=== PATIENT | female | born 1980 | race Asian ===

== ENCOUNTER 2020-07-23 08:08 | Emergency (ER) | payer MEDICAID ==
--- NOTE | 2020-07-23 08:24 | ED Physician Documentation ---
PD HPI FEMALE - Stated complaint Stated Complaint: FEMALE - Chief complaint Chief Complaint: Abd Pain - History obtained from History obtained from: Patient - History of Present Illness Timing - onset: How many days ago (5) Timing - duration: Days (5) Timing - details: Gradual onset, Still present Associated symptoms: Hematuria Contributing factors: [employer]CH MECH[employer]IC History: G (1), P (0) Similar symptoms before: Has not had sx before Recently seen: Other - Additional information Additional information: 40 y/o female recently found out she was maybe 5wks now. She has had pink tinged urine for the past 5 days and this is worse over the past 2 days. She did have some pelvic cramping about 3 days ago. No tissue has passed. She does indicate she has had some blood on a pad as well. Review of Systems Constitutional: denies: Fever, Chills, Myalgias Eyes: denies: Decreased vision Ears: denies: Ear pain Nose: denies: Rhinorrhea / runny nose, Congestion Throat: denies: Sore throat Cardiac: denies: Chest pain / pressure, Palpitations Respiratory: denies: Dyspnea, Cough GI: denies: Abdominal Pain, Nausea, Vomiting : reports: Frequency, Hematuria. denies: Dysuria Skin: denies: Rash Musculoskeletal: denies: Neck pain, Back pain, Extremity pain PD PAST MEDICAL HISTORY - Present Medications Home Medications: Ambulatory Orders Medication Instructions Recorded Confirmed Vit,Dom 74/Iron/Folic 1 tab PO DAILY 07/23/20 07/23/20 [ Low Iron Tablet] - Allergies Allergies/Adverse Reactions: Allergies Allergy/AdvReac Type Severity Reaction Status Date / Time No Known Drug Allergies Allergy Verified 07/23/20 08:50 PD ED PE NORMAL - Vitals Vital signs reviewed: Yes (hypertensive mild ) - General General: Alert and oriented X 3, No acute distress, Well developed/nourished - HEENT HEENT: Atraumatic, PERRL, EOMI - Neck Neck: Supple, no meningeal sign, No bony TTP - Cardiac Cardiac: RRR, No murmur - Respiratory Respiratory: No respiratory distress, Clear bilaterally - Abdomen Abdomen: Normal bowel sounds, Soft, Non tender, Non distended, No organomegaly - Back Back: No CVA TTP, No spinal TTP - Derm Derm: Normal color, Warm and dry, No rash - Extremities Extremities: No deformity, No edema - Neuro Neuro: Alert and oriented X 3, furnace converter 2-12 intact, No motor deficit, No sensory deficit, Normal speech Eye Opening: Spontaneous Motor: Obeys Commands Verbal: Oriented GCS Score: 15 - Psych Psych: Normal mood, Normal affect Results - Vitals Vitals: Vital Signs - 24 hr 07/23/20 07/23/20 08:10 10:52 Temperature 36.6 C 37.1 C Heart Rate 68 84 Respiratory 16 16 Rate Blood Pressure 135/59 H 118/68 O2 Saturation 100 99 Oxygen O2 Source Room air - Labs Labs: Laboratory Tests 07/23/20 07/23/20 08:40 08:54 HCG, Quant 8.09 Urine Color RED/BLOODY Urine Clarity CLOUDY Urine pH 7.0 Ur Specific [place] 1.015 Urine Protein TRACE Urine Glucose (UA) NEGATIVE Urine Ketones NEGATIVE Urine Occult Blood LARGE H Urine Nitrite NEGATIVE Urine Bilirubin NEGATIVE Urine Urobilinogen 0.2 (NORMAL) Ur Leukocyte Esterase NEGATIVE Urine RBC TNTC H Urine WBC 0-3 Ur Squamous Epith Cells RARE Squamous Urine Bacteria Rare Ur Microscopic Review INDICATED Urine Culture Comments NOT INDICATED - Rads (name of study) pelvic ultrasound Radiology: Prelim report reviewed (Impression: 1. No visualized intra or extrauterine . No free fluid. However, recommend correlation to get to beta-hCG levels and short interval imaging follow-up as indicated. Collapsing cyst noted within the right ovary), EMP read indepedently, See rad report PD MEDICAL DECISION MAKING - ED course Complexity details: reviewed results, re-evaluated patient, considered differential, d/w patient ED course: 4-year-old female with what appears to be a completed miscarriage at early . Departure - Departure Disposition: 01 Home, Self Care Clinical Impression: Miscarriage Condition: Stable Instructions: ED Miscarriage Completed Follow-Up: [facility] [Provider Group] Discharge Date/Time: 07/23/20 10:54
[2020-07-23 09:00] LABS: BILIRUBIN,URINE NEGATIVE (NEGATIVE); GLUCOSE, URINE (UA) NEGATIVE (NEGATIVE); KETONES,URINE (UA) NEGATIVE (NEGATIVE); LEUKOCYTE ESTERASE, URINE NEGATIVE (NEGATIVE); NITRITE,URINE NEGATIVE (NEGATIVE); OCCULT BLOOD,URINE LARGE (NEGATIVE); PROTEIN,URINE TRACE mg/dL (NEGATIVE); UROBILINOGEN,URINE 0.2 (NORMAL) E.U./dL (NORMAL)
[2020-07-23 09:02] LABS: BACTERIA,URINE Rare /HPF (None Seen); CLARITY,URINE CLOUDY (CLEAR); RBC,URINE TNTC /HPF (0-5); SQUAMOUS EPITHELIAL CELL,UR RARE Squamous (<= Few)
[2020-07-23 10:54] VITALS: BP 118/68
--- NOTE | 2020-07-23 11:13 | Ultrasound Report ---
PROCEDURE: OB First Trimester INDICATIONS: early bleeding cramping OUTSIDE/PRIOR DATING DATA: Last menstrual period (LMP): 06/17/2020. LMP-based estimated date of delivery (JAUN F): 03/24/2021. First dating scan (date and location): 07/23/2020. Estimated date of delivery (JUAN F) from first dating scan: Not applicable. TECHNIQUE: Real-time scanning was performed of the fetus and maternal pelvic organs, with image documentation. COMPARISON: None FINDINGS: Embryo: There is no visualization of intrauterine . Endometrium is mildly thickened. Cervix is closed. Measurement variability in dating: +/- 4 weeks by LMP, +/- 7 days by mean sac diameter (use before 6 weeks gestation if crown-rump length not able to be measured), +/- 5 days by crown-rump length (6-12 weeks gestation). Maternal organs: Ovaries demonstrate a cystic structure within the right ovary measuring 12 mm. No f ree fluid is identified.. Uterus has a somewhat arcuate appearance. IMPRESSION: 1. No visualized intra or extrauterine . No free fluid. However, recommend correlation to be ta hCG levels and short interval imaging follow-up as indicated. 2. Collapsing cyst noted within the right ovary. Reviewed by: Ana Vasquez MD on 07/23/2020 11:12 AM PST Approved by: Ana Vasquez MD on 07/23/2020 11:12 AM PST Station ID: [id number]
--- NOTE | 2020-07-23 11:14 | Ultrasound Report ---
PROCEDURE: OB Transvaginal INDICATIONS: early bleeding cramping OUTSIDE/PRIOR DATING DATA: Last menstrual period (LMP): 06/17/2020. LMP-based estimated date of delivery (JUANF ): 03/24/2021. First dating scan (date and location): 07/23/2020. Estimated date of delivery (JUAN F) from first dating scan: Not applicable. TECHNIQUE: Real-time scanning was performed of the fetus and maternal pelvic organs, with image documentation. COMPARISON: FINDINGS: Embryo: There is no visualization of intrauterine . Endometrium is mildly thickened. Cervix is closed. Measurement variability in dating: +/- 4 weeks by LMP, +/- 7 days by mean sac diameter (use before 6 weeks gestation if crown-rump length not able to be measured), +/- 5 days by crown-rump length (6-12 weeks gestation). Maternal organs: Ovaries demonstrate a cystic structure within the right ovary measuring 12 mm. No f ree fluid is identified.. Uterus has a somewhat arcuate appearance. IMPRESSION: 1. No visualized intra or extrauterine . No free fluid. However, recommend correlation to be ta hCG levels and short interval imaging follow-up as indicated. 2. Collapsing cyst noted within the right ovary. Reviewed by: Ana Vasquez MD on 07/23/2020 11:12 AM PST Approved by: Ana Vasquez MD on 07/23/2020 11:12 AM PST Station ID: [id number]
== END 2020-07-23 10:54 | disposition home or self-care (01) ==
LOC: ED 08:08
DX: O03.9 Complete or unspecified spontaneous abortion without complication (principal)
CPT/HCPCS: 36415; 81001; 81003; 84702; 87086; 99284

== ENCOUNTER 2020-07-30 14:46 | Outpatient (CLI) | payer MEDICAID | END 2020-07-30 14:47 | disposition home or self-care (01) | LOC: LAB 14:46 | PROVIDERS: ATTEND Obstetrics & Gynecology | DX: O03.9 Complete or unspecified spontaneous abortion without complication (principal) | CPT/HCPCS: 36415; 84702 ==

== ENCOUNTER 2020-11-20 11:20 | Outpatient (CLI) | payer MEDICAID ==
[2020-11-20 21:20] LABS: BACTERIAL VAGINOSIS DNA NEGATIVE (NEGATIVE); CANDIDA GLABRATA DNA NEGATIVE (NEGATIVE); CANDIDA GROUP DNA POSITIVE (NEGATIVE); CANDIDA KRUSEI DNA NEGATIVE (NEGATIVE); TRICHOMONAS VAGINALIS DNA NEGATIVE (NEGATIVE)
[2020-11-20 22:03] LABS: CHLAMYDIA TRACHOMATIS DNA NEGATIVE (NEGATIVE); NEISSERIA GONORRHOEAE DNA NEGATIVE (NEGATIVE); TRICHOMONAS VAGINALIS DNA NEGATIVE (NEGATIVE)
== END 2020-11-20 23:59 | disposition home or self-care (01) ==
LOC: LAB.R 11:20
PROVIDERS: ATTEND Physician Assistant Medical
DX: N76.0 Acute vaginitis (principal)
CPT/HCPCS: 87491; 87591; 87661; 87801

== ENCOUNTER 2021-04-10 08:00 | Outpatient (CLI) | payer MEDICAID ==
[2021-04-10 16:04] LABS: MUDS CUTOFF CONCENTRATIONS CUTOFF CONC BELOW:
[2021-04-10 16:12] LABS: BILIRUBIN,URINE NEGATIVE (NEGATIVE); GLUCOSE, URINE (UA) NEGATIVE (NEGATIVE); KETONES,URINE (UA) NEGATIVE (NEGATIVE); LEUKOCYTE ESTERASE, URINE SMALL (NEGATIVE); NITRITE,URINE NEGATIVE (NEGATIVE); OCCULT BLOOD,URINE NEGATIVE (NEGATIVE); PH,URINE 5.5 PH (5.0-7.5); PROTEIN,URINE NEGATIVE (NEGATIVE); UROBILINOGEN,URINE 0.2 (NORMAL) E.U./dL (NORMAL)
[2021-04-10 16:21] LABS: BACTERIA,URINE Rare /HPF (None Seen); CLARITY,URINE CLEAR (CLEAR); RBC,URINE 0-5 /HPF (0-5); SQUAMOUS EPITHELIAL CELL,UR MOD Squamous (<= Few); YEAST,URINE PRESENT
[2021-04-10 16:31] LABS: AMPHETAMINE SCREEN,URINE NEGATIVE (NEGATIVE); BARBITURATE SCREEN,UR NEGATIVE (NEGATIVE); BENZODIAZEPINES SCREEN, URINE NEGATIVE (NEGATIVE); COCAINE SCREEN URINE NEGATIVE (NEGATIVE); METHADONE SCREEN, URINE NEGATIVE (NEGATIVE); METHAMPHETAMINES SCREEN, URINE NEGATIVE (NEGATIVE); OPIATE SCREEN, URINE NEGATIVE (NEGATIVE); OXYCODONE SCREEN, URINE NEGATIVE (NEGATIVE); PROPOXYPHENE SCREEN, URINE NEGATIVE (NEGATIVE); THC CANNABINOID SCREEN, URINE NEGATIVE (NEGATIVE); TRICYCLIC ANTIDEPRESSANT,URINE NEGATIVE (NEGATIVE)
== END 2021-04-10 23:59 | disposition home or self-care (01) ==
LOC: LAB.WC 08:00
PROVIDERS: ATTEND Obstetrics & Gynecology
DX: O09.90 Supervision of high risk pregnancy, unspecified, unspecified trimester (principal)
CPT/HCPCS: 80306; 81001; 87086

== ENCOUNTER 2022-10-19 15:44 | Emergency (ER) | payer OTHER, MEDICAID ==
--- NOTE | 2022-10-19 17:37 | ED Physician Documentation ---
PD HPI URI - Stated complaint Stated Complaint: WHEEZING/SOA - Chief complaint Chief Complaint: Abd Pain - History obtained from History obtained from: Patient - History of Present Illness Timing - onset: Last night Timing duration: Days (1) Timing details: Gradual onset Associated symptoms: Nasal congestion, Rhinorrhea, Dry cough, Dyspnea (coughing fit today led feeling short of breath). No: Fever, Chills Recently seen: Not recently seen - Additional information Additional information: pt is 4 weeks Review of Systems Constitutional: denies: Fever, Chills Nose: reports: Rhinorrhea / runny nose, Congestion Respiratory: denies: Cough GI: denies: Nausea, Vomiting, Diarrhea Skin: denies: Rash Musculoskeletal: denies: Neck pain Neurologic: denies: Headache PD PAST MEDICAL HISTORY - Past Medical History Cardiovascular: None Respiratory: None Neuro: None Endocrine/Autoimmune: None GI: None [employer]ARD SUPERVISOR: None : None HEENT: None Psych: None Musculoskeletal: None Derm: None - Past Surgical History Past Surgical History: No - Present Medications Home Medications: Ambulatory Orders Medication Instructions Recorded Confirmed Vit,Dom 74/Iron/Folic 1 tab PO DAILY 07/23/20 07/23/20 [ Low Iron Tablet] Albuterol Sulf [Ventolin Hfa 1 - 2 puffs INH Q4HR PRN #1 each 10/19/22 Inhaler] - Allergies Allergies/Adverse Reactions: Allergies Allergy/AdvReac Type Severity Reaction Status Date / Time No Known Drug Allergies Allergy Verified 10/19/22 15:56 - Social History Does the pt smoke?: No Smoking Status: Never smoker Does the pt drink ETOH?: No Does the pt have substance abuse?: No - Immunizations Immunizations are current?: Yes - POLST Patient has POLST: No PD ED PE NORMAL - Vitals Vital signs reviewed: Yes - General General: Alert and oriented X 3, No acute distress - HEENT HEENT: Ears normal, Moist mucous membranes, Pharynx benign - Neck Neck: Supple, no meningeal sign - Cardiac Cardiac: RRR, Strong equal pulses - Respiratory Respiratory: No respiratory distress, Clear bilaterally - Abdomen Abdomen: Soft, Non tender, Non distended - Derm Derm: Warm and dry, No rash - Extremities Extremities: No edema - Neuro Neuro: Alert and oriented X 3 - Psych Psych: Normal mood, Normal affect Results - Vitals Vitals: Vital Signs - 24 hr 10/19/22 10/19/22 10/19/22 15:51 17:20 19:00 Temperature 36.3 C L 36.5 C Heart Rate 89 97 88 Respiratory 20 16 Rate Blood Pressure 133/72 H 130/70 O2 Saturation 100 100 100 Oxygen O2 Source Room air - Labs Labs: Laboratory Tests 10/19/22 17:23 Nasal Adenovirus (PCR) NOT DETECTED Nasal B. parapertussis DNA (PCR) NOT DETECTED Nasal Coronavir 229E PCR NOT DETECTED Nasal Coronavir HKU1 PCR NOT DETECTED Nasal Coronavir NL63 PCR NOT DETECTED Nasal Coronavir OC43 PCR NOT DETECTED Nasal Enterovir/Rhinovir PCR NOT DETECTED Nasal Influenza B PCR NOT DETECTED Nasal Influenza A PCR NOT DETECTED Nasal Parainfluen 1 PCR NOT DETECTED Nasal Parainfluen 2 PCR NOT DETECTED Nasal Parainfluen 3 PCR NOT DETECTED Nasal Parainfluen 4 PCR NOT DETECTED Nasal RSV (PCR) NOT DETECTED Nasal B.pertussis DNA PCR NOT DETECTED Nasal C.pneumoniae (PCR) NOT DETECTED Jamari Human Metapneumo PCR NOT DETECTED Nasal M.pneumoniae (PCR) NOT DETECTED Nasal SARS-CoV-2 (PCR) NOT DETECTED PD Medical Decision Making - ED course Complexity details: reviewed results, re-evaluated patient, considered differential, d/w patient, d/w family ED course: Patient with what appears to be a viral URI. Lungs are clear to auscultation bilaterally. Respiratory PCR is negative. No fevers. No indication for x-ray. She is . Patient and family request an inhaler for home in case she has recurrent bronchospasm, I think this is reasonable. A prescription will be sent. No hypoxia or respiratory distress. No stridor. No wheezing. Patient counseled regarding signs and symptoms for which I believe and urgent re- evaluation would be necessary. Patient with good understanding of and agreement to plan and is comfortable going home at this time This document was made in part using voice recognition software. While efforts are made to proofread this document, sound alike and grammatical errors may occur. Departure - Departure Disposition: 01 Home, Self Care Clinical Impression: Viral upper respiratory infection Condition: Good Instructions: ED Viral Syndrome Follow-Up: your,doctor in 1 week [Other] Prescriptions: Albuterol Sulf [Ventolin Hfa Inhaler] 1 - 2 puffs INH Q4HR PRN #1 each PRN Reason: Shortness Of Air/Wheezing Comments: Please follow-up with your doctor for further care. Drink plenty of fluids. Please return if you worsen. Your respiratory panel is negative for COVID, influenza, RSV, etc. Your oxygen levels are normal. Your lungs are clear. You can use [id number] cough medication as needed. Forms: Activity restrictions Discharge Date/Time: 10/19/22 19:17
[2022-10-19 18:20] LABS: B. PARAPERTUSSIS- RESP PCR PAN NOT DETECTED; B. PERTUSSIS- RESP PCR PANEL NOT DETECTED; C. PNEUMONIAE- RESP PCR PANEL NOT DETECTED; CORONAVIRUS 229E-RESP PCR NOT DETECTED; CORONAVIRUS HKU1-RESP PCR NOT DETECTED; CORONAVIRUS NL63-RESP PCR NOT DETECTED; CORONAVIRUS OC43-RESP PCR NOT DETECTED; HUMAN METAPNEUMOVIRUS NOT DETECTED; INFLUENZA A- RESP PCR PANEL NOT DETECTED; INFLUENZA B - RESP PCR PANEL NOT DETECTED; M. PNEUMONIAE- RESP PCR PANEL NOT DETECTED; PARAINFLUENZA VIRUS 1 NOT DETECTED; PARAINFLUENZA VIRUS 2 NOT DETECTED; PARAINFLUENZA VIRUS 3 NOT DETECTED; PARAINFLUENZA VIRUS 4 NOT DETECTED; RHINOVIRUS/ENTEROVIRUS NOT DETECTED; RSV- RESP PCR PANEL NOT DETECTED; SARS-CoV-2 -RESP PCR PANEL NOT DETECTED
[2022-10-19 19:17] VITALS: BP 130/70
== END 2022-10-19 19:17 | disposition home or self-care (01) ==
LOC: ED 15:44
DX: O99.511 Diseases of the respiratory system complicating pregnancy, first trimester (principal); J06.9 Acute upper respiratory infection, unspecified; Z3A.01 Less than 8 weeks gestation of pregnancy; Z20.822 Contact with and (suspected) exposure to COVID-19
CPT/HCPCS: 87633; 99283

== ENCOUNTER 2022-11-06 15:04 | Outpatient (CLI) | payer OTHER, MEDICAID | END 2022-11-06 15:05 | disposition home or self-care (01) | LOC: LAB.N 15:04 | PROVIDERS: ATTEND Obstetrics & Gynecology | DX: O20.0 Threatened abortion (principal) | CPT/HCPCS: 36415; 84702 ==

== ENCOUNTER 2022-12-02 16:50 | Outpatient (CLI) | payer OTHER ==
--- NOTE | 2022-12-03 11:40 | Ultrasound Report ---
PROCEDURE: Pelvic w/Transvaginal INDICATIONS: RECENT MISCARRIAGE TECHNIQUE: Real-time scanning was performed of the pelvic organs, with image documentation. Additional endovagi nal scanning was necessary due to incomplete visualization of the adnexal and endometrial structures by transabdominal scanning. COMPARISON: None. FINDINGS: Uterus: Uterus is anteverted and normal in size at 7.5 x 3.9 x 5.7 cm. The myometrium is heterogene ous. The endometrium measures 13.2 mm in combined thickness. The endometrium is heterogeneous, with out vascularity. Ovaries: The right ovary measures 1.9 x 2 x 2.3 cm, with a calculated ovarian volume of 6.5 cc. The left ovary measures 3.4 x 1.6 x 3.1 cm, with a calculated ovarian volume of 9 cc. The ovaries have a normal sonographic appearance. Greater than 12 follicles can be seen in each ovary. No adnexal ma sses are seen. No cystic lesions measuring greater than 3 cm. Other: No pathologic free abdominal or pelvic fluid. IMPRESSION: Heterogeneous endometrium without internal vascularity. Findings are equivocal for retained products of conception. Correlate with beta hCG. Greater than 12 follicles can be seen in each ovary, which can be seen in the clinical setting of PCO S. Reviewed by: Jeffrey Singer on 12/03/2022 11:39 AM PDT Approved by: Jeffrey Singer on 12/03/2022 11:39 AM PDT Station ID: [id number]
== END 2022-12-02 16:51 | disposition home or self-care (01) ==
LOC: DI 16:50
PROVIDERS: ATTEND Obstetrics & Gynecology
DX: N96 Recurrent pregnancy loss (principal)